=== PATIENT | female | born 1990 | race Caucasian/White ===

== ENCOUNTER 2023-12-20 08:52 | Outpatient (OUT) | payer BC, SELFPAY ==
--- NOTE | 2023-12-20 | US_ITS ---
The [address] [address] Patient Name: HADLEY PASCUAL MRN: [id number] date: 1990 Sex: F Assigned Patient Location: US Current Patient Location: Accession/Order Number: [id number] Exam Date: 12/20/2023 09:00 Report Date: 12/22/2023 07:47 At the request of: NAIF PRESLEY Procedure: US thyroid EXAMINATION: US thyroid HISTORY: NECK PAIN M54.2 COMPARISON: No relevant comparison available. TECHNIQUE: Sonographic images of the thyroid gland were obtained. FINDINGS: The right thyroid lobe is normal in size, contour and echotexture measuring 5.1 x 1.6 x 1.3 cm. No focal nodules The thyroid isthmus measures 1.8 mm, no focal nodule The left thyroid lobe is normal in size, contour and echotexture measuring 4.4 x 1.7 x 1.1 cm. No focal nodule No ultrasound abnormality in the region of the patient's palpable mass, anterior neck US/US thyroid IMPRESSION: Normal exam TI-RADS: TI-RADS 1: Normal thyroid gland. No focal lesion. Electronically authenticated by: MAEGAN MAC Date: 12/22/2023 07:47
== END 2023-12-20 08:53 | disposition home or self-care (01) ==
LOC: US 08:52
PROVIDERS: PCP Nurse Practitioner Family; Visit Provider Nurse Practitioner Family
DX: M54.2 Cervicalgia (principal)
CPT/HCPCS: 76536

== ENCOUNTER 2024-12-14 15:43 | Outpatient (RCR) | payer BC, SELFPAY | END 2025-02-04 15:56 | disposition home or self-care (01) | LOC: PT 15:43 | PROVIDERS: PCP Nurse Practitioner Family; Visit Provider Nurse Practitioner Family | DX: R20.2 Paresthesia of skin (principal) | CPT/HCPCS: 97012; 97110; 97140; 97161 ==